=== PATIENT | male | born 1970 | race Caucasian/White ===

== ENCOUNTER 2016-03-22 15:30 | Emergency (ER) | payer OTHER ==
--- NOTE | 2016-03-22 16:48 | EDDOCDS ---
Nurse's Notes [facility] Name: Kurt Maharaj Age: 45 yrs Sex: Male : 1970 Arrival Date: 03/22/2016 Time: 15:30 Bed Triage 2 Private MD: Augie Sullivan Diagnosis: Otitis media, unspecified, right ear Presentation: 03/22 15:45 Presenting complaint: Patient states: right earache since this morning. body aches and j sore throat since yesterday. Adult Sepsis Screening: The patient does not have new or worsening altered mentation. Patient's respiratory rate is less than 22. Systolic blood pressure is greater than 100. Patient has a qSOFA score of 0- Negative Sepsis Screen. Suicide/Homicide risk assessment- the patient denies having any suicidal and/or homicidal ideations and does not present with any other emotional, behavioral or mental health complaints. Status: Patient is not a family service worker or dependent. Transition of care: patient was not received from another setting of care. 15:45 Acuity: LEXI Level 5 [facility] 15:45 Method Of Arrival: Walkin/Carried/Asstd [facility] Triage Assessment: 15:47 General: Appears uncomfortable, well nourished, well groomed, Behavior is appropriate [facility] for age, pleasant. Pain: Location: right ear Pain currently is 7 out of 10 on a pain scale. Pt Declines HIV testing. Neurological: Level of Consciousness is awake, alert, Oriented to person. EENT: Reports nasal congestion pain in right ear when swallowing Pain is 7 out of 10 on a pain scale. Respiratory: Airway is patent Respiratory effort is even, unlabored, Respiratory pattern is regular, symmetrical, Reports cough that is non-productive. Derm: Skin is pink, warm & dry. Historical: - Allergies: Tylenol-Codeine (chest pain); - Home Meds: 1. dayquil 30 mL as needed (Last dose: 03/22/2016 12:00) - PMHx: none; - PSHx: 2 left knee surgeries; - Social history: Smoking status: Patient states was never smoker of tobacco. No barriers to communication noted, The patient speaks fluent Korean. - Family history: Not pertinent. - : The pt / caregiver states he / she is not on anticoagulants. Home medication list is obtained from the patient. - Exposure Risk Screening:: None identified. Screenin:46 Screening information is obtained from the patient. Primary language is Korean. Fall dwg risk: No risks identified. Assistance ADL's: requires no assistance with activities of daily living. Abuse/DV Screen: The patient / caregiver reports he/she is: not in a situation that causes fear, pain or injury. Nutritional screening: No deficits noted. Advance Directives: Currently, there is no health care proxy. There is no active DNR order. There is no living will. There is no Power of [employer]. Advance directive information has not previously been placed in an [facility] medical record. Further advance directive information is declined. home support is adequate. Assessment: 16:46 The patient / caregiver is instructed regarding the plan of care and ED course. [facility] Physical assessment to be completed by PA/ED. Vital Signs: 15:32 BP 146 / 95; Pulse 84; Resp 18; Temp 98.6(O); Pulse Ox 99% on R/A; Weight 77.11 kg (R); elp Height 5 ft. 8 in. (172.72 cm) (R); Pain 8/10; 16:32 BP 150 / 101; Pulse 79; Resp 18; Temp 98.7(T); Pulse Ox 99% on R/A; Pain 8/10; dem1 15:32 Body Mass Index 25.85 (77.11 kg, 172.72 cm) [facility] Vitals: 15:32 Log In Time: March 22, 2016 at 15:30. [facility] ED Course: 15:31 Patient visited by Josette Chavez PCA. elp 15:31 Patient moved to Waiting elp 15:33 Patient visited by Josette Chavez PCA. elp 15:33 Patient moved to Pre RCE elp 15:34 Augie Sullivan is Private Physician. elp 15:34 Patient visited by Josette Chavez PCA. elp 15:46 Triage Initiated [facility] 16:09 Patient moved to Triage 2 [facility] 16:12 [facility] ck[facility] 16:12 Muna Mak MD is Attending Physician. ck7 16:12 Patient visited by Edu Mcpherson RPA-C. ck7 16:29 Augie Sullivan is Referral Physician. ck7 16:32 Patient visited by Suzy Vickers. dem1 16:47 Patient has correct armband on for positive identification. dwg 16:47 No IV's were initiated during this patient's visit. No procedures done that require dwg assistance. Order Results: There are currently no results for this order. Outcome: 16:29 Discharge ordered by Provider. ck7 16:47 The following High Risk Discharge criteria are identified: None. Discharged to home dwg ambulatory. Condition: good Condition: stable. No special radiology studies were completed. 16:47 Discharge Assessment: Patient awake, alert and oriented x 3. No cognitive and/or dwg functional deficits noted. Patient verbalized understanding of disposition instructions. patient administered narcotics - no. Property sent home with patient. 16:48 Patient left the ED. dwg Signatures: Luis Galvan, RN RN [facility] Leonie Tinajero, RN RN Suzy Fierro dem1 Edu Mcpherson, RPA-C RPA-Cck7 Scott, Josette, [employer] elp GHAZALD
--- NOTE | 2016-03-22 16:48 | EDDOCDS ---
Physician Documentation [facility] Name: Kurt Maharaj Age: 45 yrs Sex: Male : 1970 Arrival Date: 03/22/2016 Time: 15:30 Bed Triage 2 Private MD: Augie Sullivan Disposition: 03/22/16 16:29 Discharged to Home/Self Care. Impression: Otitis media, unspecified, right ear. - Condition is Stable. - Discharge Instructions: Otitis Media, Adult. - Prescriptions for Amoxicillin 500 mg Oral Capsule - take 1 capsule by ORAL route every 8 hours for 10 days; 30 tablet. Ibuprofen 600 mg Oral Tablet - take 1 tablet by ORAL route every 6 hours As needed take with food; 30 tablet. - Medication Reconciliation, Local Pharmacy Hours form. - Follow up: Augie Sullivan; When: 2 - 3 days; Reason: Recheck today's complaints, Continuance of care. - Problem is new. - Symptoms have improved. - Notes: USE MEDICATIONS INSTRUTCED, FOLLOW UP WITH YOUR DOCTOR, RETURN TO THE ER IF THE SYMPTOMS WORSEN OR BECOME CONCERNING Historical: - Allergies: Tylenol-Codeine (chest pain); - Home Meds: 1. dayquil 30 mL as needed (Last dose: 03/22/2016 12:00) - PMHx: none; - PSHx: 2 left knee surgeries; - Social history: Smoking status: Patient states was never smoker of tobacco. No barriers to communication noted, The patient speaks fluent Syriac. - Family history: Not pertinent. - : The pt / caregiver states he / she is not on anticoagulants. Home medication list is obtained from the patient. - Exposure Risk Screening:: None identified. Vital Signs: 03/22 15:32 BP 146 / 95; Pulse 84; Resp 18; Temp 98.6(O); Pulse Ox 99% on R/A; Weight 77.11 kg / elp 170 lbs (R); Height 5 ft. 8 in. (172.72 cm) (R); Pain 8/10; 16:32 BP 150 / 101; Pulse 79; Resp 18; Temp 98.7(T); Pulse Ox 99% on R/A; Pain 8/10; dem1 15:32 Body Mass Index 25.85 (77.11 kg, 172.72 cm) elp Signatures: Luis Galvan RN RN Leonie Valdivia RN RN Edu Muse, RPA-C RPA-Cck7 The chart was reviewed and I authenticate all verbal orders and agree with the evaluation and treatment provided.Corrections: (The following items were deleted from the chart) 16:25 16:16 Strep Screen, Nursing ordered. ck7 ck7 MTDD
--- NOTE | 2016-03-24 17:49 | EDDOCDS ---
Physician Documentation [facility] Name: Kurt aMharaj Age: 45 yrs Sex: Male : 1970 Arrival Date: 03/22/2016 Time: 15:30 Bed Triage 2 Private MD: Augie Sullivan Disposition: 03/22/16 16:29 Discharged to Home/Self Care. Impression: Otitis media, unspecified, right ear. - Condition is Stable. - Discharge Instructions: Otitis Media, Adult. - Prescriptions for Amoxicillin 500 mg Oral Capsule - take 1 capsule by ORAL route every 8 hours for 10 days; 30 tablet. Ibuprofen 600 mg Oral Tablet - take 1 tablet by ORAL route every 6 hours As needed take with food; 30 tablet. - Medication Reconciliation, Local Pharmacy Hours form. - Follow up: Augie Sullivan; When: 2 - 3 days; Reason: Recheck today's complaints, Continuance of care. - Problem is new. - Symptoms have improved. - Notes: USE MEDICATIONS INSTRUTCED, FOLLOW UP WITH YOUR DOCTOR, RETURN TO THE ER IF THE SYMPTOMS WORSEN OR BECOME CONCERNING Historical: - Allergies: Tylenol-Codeine (chest pain); - Home Meds: 1. dayquil 30 mL as needed (Last dose: 03/22/2016 12:00) - PMHx: none; - PSHx: 2 left knee surgeries; - Social history: Smoking status: Patient states was never smoker of tobacco. No barriers to communication noted, The patient speaks fluent Albanian. - Family history: Not pertinent. - : The pt / caregiver states he / she is not on anticoagulants. Home medication list is obtained from the patient. - Exposure Risk Screening:: None identified. Vital Signs: 03/22 15:32 BP 146 / 95; Pulse 84; Resp 18; Temp 98.6(O); Pulse Ox 99% on R/A; Weight 77.11 kg / elp 170 lbs (R); Height 5 ft. 8 in. (172.72 cm) (R); Pain 8/10; 16:32 BP 150 / 101; Pulse 79; Resp 18; Temp 98.7(T); Pulse Ox 99% on R/A; Pain 8/10; dem1 15:32 Body Mass Index 25.85 (77.11 kg, 172.72 cm) elp MDM: 17:12 [facility] was scanned into [employer] and attached to record. [facility] 17:12 Financial registration complete. b 03/23 11:47 T-Sheet-- Draft Copy was scanned into [employer] and attached to record. gb Signatures: Luis Galvan, RN RN Leonie Valdivia RN RN Sari Smith, Reg Reg Edu Sheehan, RPA-C RPA-Cck7 Tatyana Rodriguez The chart was reviewed and I authenticate all verbal orders and agree with the evaluation and treatment provided.Corrections: (The following items were deleted from the chart) 03/22 16:25 16:16 Strep Screen, Nursing ordered. ck7 ck7 Attachments: 17:12 [facility] [place] [facility] 03/23 11:47 T-Sheet-- Draft Copy gb Chart Complete MTDD
--- NOTE | 2016-03-24 17:49 | EDDOCDS ---
Physician Documentation [facility] Name: Kurt Maharaj Age: 45 yrs Sex: Male : 1970 Arrival Date: 03/22/2016 Time: 15:30 Bed Triage 2 Private MD: Augie Sullivan Disposition: 03/22/16 16:29 Discharged to Home/Self Care. Impression: Otitis media, unspecified, right ear. - Condition is Stable. - Discharge Instructions: Otitis Media, Adult. - Prescriptions for Amoxicillin 500 mg Oral Capsule - take 1 capsule by ORAL route every 8 hours for 10 days; 30 tablet. Ibuprofen 600 mg Oral Tablet - take 1 tablet by ORAL route every 6 hours As needed take with food; 30 tablet. - Medication Reconciliation, Local Pharmacy Hours form. - Follow up: Augie Sullivan; When: 2 - 3 days; Reason: Recheck today's complaints, Continuance of care. - Problem is new. - Symptoms have improved. - Notes: USE MEDICATIONS INSTRUTCED, FOLLOW UP WITH YOUR DOCTOR, RETURN TO THE ER IF THE SYMPTOMS WORSEN OR BECOME CONCERNING Historical: - Allergies: Tylenol-Codeine (chest pain); - Home Meds: 1. dayquil 30 mL as needed (Last dose: 03/22/2016 12:00) - PMHx: none; - PSHx: 2 left knee surgeries; - Social history: Smoking status: Patient states was never smoker of tobacco. No barriers to communication noted, The patient speaks fluent Pashto. - Family history: Not pertinent. - : The pt / caregiver states he / she is not on anticoagulants. Home medication list is obtained from the patient. - Exposure Risk Screening:: None identified. Vital Signs: 03/22 15:32 BP 146 / 95; Pulse 84; Resp 18; Temp 98.6(O); Pulse Ox 99% on R/A; Weight 77.11 kg / elp 170 lbs (R); Height 5 ft. 8 in. (172.72 cm) (R); Pain 8/10; 16:32 BP 150 / 101; Pulse 79; Resp 18; Temp 98.7(T); Pulse Ox 99% on R/A; Pain 8/10; dem1 15:32 Body Mass Index 25.85 (77.11 kg, 172.72 cm) elp MDM: 17:12 [facility] Payment Agreement was scanned into [employer] and attached to record. [facility] 17:12 Financial registration complete. b 03/23 11:47 T-Sheet-- Draft Copy was scanned into [employer] and attached to record. gb Signatures: Luis Galvan, RN RN Leonie Valdivia RN RN Sari Smith, Reg Reg Edu Sheehan, RPA-C RPA-Cck7 Tatyana Rodriguez The chart was reviewed and I authenticate all verbal orders and agree with the evaluation and treatment provided.Corrections: (The following items were deleted from the chart) 03/22 16:25 16:16 Strep Screen, Nursing ordered. ck7 ck7 Attachments: 17:12 [facility] Payment Agreement [facility] 03/23 11:47 T-Sheet-- Draft Copy gb Chart Complete MTDD
--- NOTE | 2016-03-24 17:49 | EDDOCDS ---
Nurse's Notes [facility] Name: Kurt Maharaj Age: 45 yrs Sex: Male : 1970 Arrival Date: 03/22/2016 Time: 15:30 Bed Triage 2 Private MD: Augie Sullivan Diagnosis: Otitis media, unspecified, right ear Presentation: 03/22 15:45 Presenting complaint: Patient states: right earache since this morning. body aches and j sore throat since yesterday. Adult Sepsis Screening: The patient does not have new or worsening altered mentation. Patient's respiratory rate is less than 22. Systolic blood pressure is greater than 100. Patient has a qSOFA score of 0- Negative Sepsis Screen. Suicide/Homicide risk assessment- the patient denies having any suicidal and/or homicidal ideations and does not present with any other emotional, behavioral or mental health complaints. Status: Patient is not a nutrition services aide or dependent. Transition of care: patient was not received from another setting of care. 15:45 Acuity: LEXI Level 5 [facility] 15:45 Method Of Arrival: Walkin/Carried/Asstd [facility] Triage Assessment: 15:47 General: Appears uncomfortable, well nourished, well groomed, Behavior is appropriate [facility] for age, pleasant. Pain: Location: right ear Pain currently is 7 out of 10 on a pain scale. Pt Declines HIV testing. Neurological: Level of Consciousness is awake, alert, Oriented to person. EENT: Reports nasal congestion pain in right ear when swallowing Pain is 7 out of 10 on a pain scale. Respiratory: Airway is patent Respiratory effort is even, unlabored, Respiratory pattern is regular, symmetrical, Reports cough that is non-productive. Derm: Skin is pink, warm & dry. Historical: - Allergies: Tylenol-Codeine (chest pain); - Home Meds: 1. dayquil 30 mL as needed (Last dose: 03/22/2016 12:00) - PMHx: none; - PSHx: 2 left knee surgeries; - Social history: Smoking status: Patient states was never smoker of tobacco. No barriers to communication noted, The patient speaks fluent Croatian. - Family history: Not pertinent. - : The pt / caregiver states he / she is not on anticoagulants. Home medication list is obtained from the patient. - Exposure Risk Screening:: None identified. Screenin:46 Screening information is obtained from the patient. Primary language is Croatian. Fall dwg risk: No risks identified. Assistance ADL's: requires no assistance with activities of daily living. Abuse/DV Screen: The patient / caregiver reports he/she is: not in a situation that causes fear, pain or injury. Nutritional screening: No deficits noted. Advance Directives: Currently, there is no health care proxy. There is no active DNR order. There is no living will. There is no Power of [employer]. Advance directive information has not previously been placed in an [facility] medical record. Further advance directive information is declined. home support is adequate. Assessment: 16:46 The patient / caregiver is instructed regarding the plan of care and ED course. [facility] Physical assessment to be completed by PA/ED. Vital Signs: 15:32 BP 146 / 95; Pulse 84; Resp 18; Temp 98.6(O); Pulse Ox 99% on R/A; Weight 77.11 kg (R); elp Height 5 ft. 8 in. (172.72 cm) (R); Pain 8/10; 16:32 BP 150 / 101; Pulse 79; Resp 18; Temp 98.7(T); Pulse Ox 99% on R/A; Pain 8/10; dem1 15:32 Body Mass Index 25.85 (77.11 kg, 172.72 cm) [facility] Vitals: 15:32 Log In Time: March 22, 2016 at 15:30. [facility] ED Course: 15:31 Patient visited by Josette Chavez PCA. elp 15:31 Patient moved to Waiting elp 15:33 Patient visited by Josette Chavez PCA. elp 15:33 Patient moved to Pre RCE elp 15:34 Augie Sullivan is Private Physician. elp 15:34 Patient visited by Josette Chavez PCA. elp 15:46 Triage Initiated [facility] 16:09 Patient moved to Triage 2 [facility] 16:12 Edu Mcpherson [facility]-C [facility] ck[facility] 16:12 Muna Mak MD is Attending Physician. ck7 16:12 Patient visited by Edu Mcpherson RPA-C. ck7 16:29 Augie Sullivan is Referral Physician. ck7 16:32 Patient visited by Suzy Vickers. dem1 16:47 Patient has correct armband on for positive identification. dwg 16:47 No IV's were initiated during this patient's visit. No procedures done that require dwg assistance. 17:12 [facility] Payment Agreement was scanned into [employer] and attached to record. gjb 03/23 11:47 T-Sheet-- Draft Copy was scanned into [employer] and attached to record. gb Order Results: There are currently no results for this order. Outcome: 03/22 16:29 Discharge ordered by Provider. ck7 16:47 The following High Risk Discharge criteria are identified: None. Discharged to home dwg ambulatory. Condition: good Condition: stable. No special radiology studies were completed. 16:47 Discharge Assessment: Patient awake, alert and oriented x 3. No cognitive and/or dwg functional deficits noted. Patient verbalized understanding of disposition instructions. patient administered narcotics - no. Property sent home with patient. 16:48 Patient left the ED. dwg Signatures: Luis Galvan, RN RN dwg Leonie Tinajero, RN RN Sari Jarvis, Reg Reg gb Suzy Vickers dem1 Edu Mcpherson, RPA-C RPA-Cck7 Josette Chavez, Tatyana Raymond Chart Complete MTDD
== END 2016-03-22 16:48 | disposition home or self-care (01) ==
LOC: M ED 15:30
DX: H66.91 Otitis media, unspecified, right ear (principal); Z88.5 Allergy status to narcotic agent

== ENCOUNTER → 2023-06-27 | Outpatient (REF) | payer OTHER | LOC: M SFHCDERM 12:43 | PROVIDERS: ATTEND Physician Assistant | DX: L82.0 Inflamed seborrheic keratosis (principal) ==

== ENCOUNTER → 2024-04-07 | Outpatient (REF) | payer OTHER | LOC: M SFHCDERM 13:07 | PROVIDERS: ATTEND Physician Assistant | DX: L82.1 Other seborrheic keratosis (principal) ==